=== PATIENT | male | born 1980 | race Caucasian/White ===

== ENCOUNTER 2025-11-10 18:59 | Emergency (ER) | payer MEDICAID ==
[~2025-11-10] VITALS: Ht 167.6 cm; Wt 91.0 kg
[2025-11-10 19:02] VITALS: O2SAT 99
[2025-11-10] MEDS ORDERED: NALT50TA5 MT (19:35)
[2025-11-10 20:45] VITALS: BP 99/56; PULSE 87; RESP 16; TEMP 36.8; O2SAT 98
== END 2025-11-10 20:54 | disposition home or self-care (01) ==
LOC: EDBD 18:59 → ER 18:59
DX: R06.09 Other forms of dyspnea (principal)
CPT/HCPCS: 99283